=== PATIENT | female | born 1990 | race Caucasian/White ===

== ENCOUNTER 2016-10-17 13:27 | Inpatient (IN) | payer OTHER, BC ==
[~2016-10-17] VITALS: Ht 167.6 cm; Wt 111.0 kg
[~2016-10-17 13:27] MED LIST: ERGO500037 PO; PRENTAB26 PO
[2016-10-17] MEDS ORDERED: LACTATED RINGER'S 1000ML 1,000 ML IV PRN (14:39)
[2016-10-17] MEDS ORDERED: PENICILLIN G POTASSIUM IV 6 MU in DEXTROSE 5% 250ML 250 ML IV ONE (15:00)
[2016-10-17] MEDS: LACTATED RINGER'S 1000ML 1,000 ML IV SCH (15:05)
[2016-10-17 15:26] LABS: HEMATOCRIT 37.4 % (37-47); MEAN CELL VOLUME 90.1 fL (80-100); MEAN CORPUSCULAR HEMOGLOBIN 30.6 pg (25-34); MEAN PLATELET VOLUME 10.3 fL (7.4-10.4); PLATELET COUNT 280 K/uL (130-400); RED BLOOD COUNT 4.15 M/uL (4.2-5.4); WHITE BLOOD COUNT 14.41 K/uL (4.8-10.8)
[2016-10-17 16:07] VITALS: Ht 167.6 cm; Wt 111.0 kg
[2016-10-17] MEDS ORDERED: BUPIVACAINE 0.25% 30 ML VIAL ONE (17:51)
[2016-10-17] MEDS ORDERED: EpHEDrine SULFATE INJ 50 MG/ML AMP ONE (17:51)
[2016-10-17] MEDS ORDERED: FENTANYL CITRATE INJ 50 MCG/1 ML 2 ML VIAL ONE (17:52)
[2016-10-17] MEDS ORDERED: FENTANYL 2MCG/ML ROPIV 1.25MG/ML 100ML BAG EPI ONE (17:52)
[2016-10-17] MEDS ORDERED: LACTATED RINGER'S 1000ML 500 ML IV PRN ×2 (17:52→18:35)
[2016-10-17] MEDS ORDERED: OXYTOCIN 30 UNITS/500ML NSS IV PRN (18:00)
[2016-10-17] MEDS ORDERED: ONDANSETRON INJ 2 MG/ML 2 ML VIAL IV PRN (18:45)
[2016-10-17] MEDS ORDERED: NALOXONE HCL INJ 0.4 MG/1 ML VIAL/CARP IV PRN (18:45)
[2016-10-17] MEDS ORDERED: NALBUPHINE HCL INJ 10 MG/ML AMP IV PRN (18:45)
[2016-10-17] MEDS ORDERED: EpHEDrine SULFATE INJ 50 MG/ML AMP IV PRN (18:45)
[2016-10-17] MEDS ORDERED: DiphenhydrAMINE HCL 50 MG/ML VIAL IV PRN (18:45)
[2016-10-17] MEDS: PENICILLIN G POTASSIUM IV 3 MU in DEXTROSE 5% 100ML 100 ML IV PRN ×2 (19:12→23:28)
[2016-10-17] MEDS ORDERED: ONDANSETRON INJ 2 MG/ML 2 ML VIAL ONE (19:19)
[2016-10-17] MEDS ORDERED: ACETAMINOPHEN 325 MG TAB ONE (22:25)
[2016-10-17] MEDS ORDERED: ACETAMINOPHEN 325 MG TAB PO PRN (22:30)
[2016-10-18] MEDS: LACTATED RINGER'S 1000ML 1,000 ML IV SCH (02:01)
[2016-10-18] MEDS: FENTANYL 2MCG/ML ROPIV 1.25MG/ML 100ML BAG EPI PRN ×3 (02:03→08:45)
[2016-10-18] MEDS: PENICILLIN G POTASSIUM IV 3 MU in DEXTROSE 5% 100ML 100 ML IV PRN ×2 (03:30→07:23)
[2016-10-18] MEDS ORDERED: METHYLERGONOVINE MALEATE 0.2 MG/ML AMP ONE (10:23)
[2016-10-18] MEDS ORDERED: METHYLERGONOVINE MALEATE 0.2 MG/ML AMP IM ONE (11:00)
[2016-10-18] MEDS ORDERED: HYDROCORTISONE ACETATE 25 MG SUPP PR PRN (11:00)
[2016-10-18] MEDS ORDERED: MISOPROSTOL 200 MCG TAB PR SCH (11:00)
[2016-10-18] MEDS ORDERED: ACETAMINOPHEN/CODEINE 300/30MG TAB PO PRN ×2 (11:00)
[2016-10-18] MEDS ORDERED: LANOLIN OINT EXT PRN ×2 (11:00)
[2016-10-18] MEDS ORDERED: SUPERCREAM 0.870 % 15GM JAR EXT PRN (11:00)
[2016-10-18] MEDS ORDERED: BENZOCAINE 20% AER SPR 82.5 GM CAN EXT PRN (11:00)
[2016-10-18] MEDS ORDERED: OXYTOCIN 30 UNITS/500ML NSS IV PRN (11:00)
[2016-10-18] MEDS ORDERED: DIPHTHERIA/TETANUS/PERTUSSIS 0.5 ML SYR/VIAL IM. ONE (11:00)
--- NOTE | 2016-10-18 12:28 | DELIVERY SUMMARY ---
DATE OF OPERATION: 10/18/2016 FINDINGS: Viable female with Apgars of 9 and 9. Baby delivered over a midline episiotomy. Cord gasses, cord blood samples obtained. Placenta delivered spontaneously. Episiotomy repaired with 4-0 and 2-0 Vicryl. atony treated with Methergine, Pitocin and rectal Cytotec. LABOR NOTE: The patient is a 26-year-old 2, para 0 with an EDC of 22 of October, who was admitted at 39+ weeks gestational age in labor. The patient presented to Labor and Delivery on 17 of October for contractions and leaking of fluid. She had been leaking fluid since the previous evening. The contractions began to increase in intensity approximately at 0600 hours on the 17 of October and she presented to Labor and Delivery for evaluation. The patient has had a benign course. EDC was established by and confirmed by first trimester ultrasound. Her laboratory value showed a blood type of O positive, antibody negative, rubella immune, hepatitis B negative. She had a negative quad screen. She had an elevated 1 hour Glucola at 16 weeks with normal glucose tolerance test at both 16 and 28 weeks. The patient had positive GBS bacteria at 28 weeks. Upon admission, the patient was 3 cm dilated anabelle leaking fluid, but there was a palpable forebag because of the positive beta-strep. She was started on penicillin 6 million unit loading dose and then 3 million units every 4 hours. Contractions became more regular. Pitocin was initiated. The patient became uncomfortable and an epidural was placed. Forebag was ruptured at 5 cm and thick meconium was noted. Tracing was category 2 with moderate variability. The patient progressed to full dilatation by 0630 hours on the 18 of October and began her second stage. By 0830 she was at a +2 presentation in an OA presentation very uncomfortable on examination. Delivering physician assumed care for the patient. Despite the discomfort the patient had no sensation in her legs and was unable to bear weight or any upper abdominal pain. Options for attempted operative vaginal delivery versus section versus continuing pushing were discussed with the patient upon the delivering physician's assumption of care. The patient wished to continue to push. Tracing was category 2 and felt to be stable. The patient continued to push effectively and after a 3-hour and 45-minute second stage delivered a viable female infant. Some difficulty with the shoulders, reduced with moderate traction. No suprapubic pressure was needed. Baby delivered with good vigorous cry terminating meconium diesel engine specialist. Because of the prolonged second stage, pediatrics was present for the delivery to evaluate the baby. Cord was clamped and cut. Cord gasses, cord blood samples were obtained. Placenta was delivered spontaneously. There was atony. The patient initially received IV Pitocin as well as IM Methergine. The atony improved though there was still bleeding and she then received Cytotec 800 mcg rectally. Midline episiotomy was repaired with 4-0 and 2-0 Vicryl in a routine fashion. Estimated blood loss was 300 mL. Sponge and needle count was correct. I attest to the content of the Intraoperative Record and any orders documented therein. Any exceptions are noted below. MTDD
--- NOTE | 2016-10-18 12:34 | Anesthesia Procedure Note ---
Anesthesia Epidural Removal Nt Date & Time Oct 18, 2016 at 12:34 Vital Signs Pain Intensity: 9.0 Notes Mental Status: alert / awake / arousable, participated in evaluation Nausea / Vomiting: adequately controlled Pain: adequately controlled Airway Patency, RR, SpO2: stable & adequate BP & HR: stable & adequate Hydration State: stable & adequate Neuraxial Anesthesia: was administered, sensory block is resolving Anesthetic Complications: no major complications apparent, pt satisfied with anesthetic care Epidural: removed without complications, with tip intact
[2016-10-18] MEDS: IBUPROFEN 600 MG TAB PO PRN ×3 (13:24→21:36)
[2016-10-18 16:30] VITALS: BP 134/90; PULSE 98; TEMP 37
[2016-10-18] MEDS: ACETAMINOPHEN 325 MG TAB PO PRN ×2 (18:44→23:10)
[2016-10-18 19:30] VITALS: BP 141/82; PULSE 106; TEMP 37.1
[2016-10-18] MEDS: DOCUSATE SODIUM 100 MG CAP PO SCH (19:41)
[2016-10-18 23:25] VITALS: BP 120/79; PULSE 86; TEMP 36.5; O2SAT 98
[2016-10-19 04:50] VITALS: BP 132/89; PULSE 82; TEMP 36.3; O2SAT 98
[2016-10-19] MEDS: IBUPROFEN 600 MG TAB PO PRN ×3 (05:05→21:53)
--- NOTE | 2016-10-19 06:50 | Progress Note ---
Subjective Oct 19, 2016. Subjective conversation w/ patient, physical exam Ambulation: ambulating normally Voiding: no voiding problems Passing Gas: Yes Diet Tolerance: Regular Diet Lochia: Small Feeding Type: Breast Feeding Pain: Pain well controlled with Tylenol and Motrin Review of Systems Constitutional: No chills, No fever Respiratory: No cough, No shortness of breath Cardiac: No chest pain Breast: No breast pain Abdomen: No nausea, No pain, No vomiting Female : No dysuria Objective Vital Signs Date Time Temp Pulse Resp B/P Pulse Ox O2 Delivery O2 Flow Rate FiO2 10/19/16 04:50 36.3 82 16 132/89 98 Room Air 10/18/16 23:25 98 Room Air 10/18/16 23:25 36.5 86 18 120/79 98 Room Air 10/18/16 19:30 37.1 106 22 141/82 Room Air 10/18/16 16:30 37.0 98 20 134/90 10/18/16 13:40 Room Air Physical Exam General Appearance: WELL-APPEARING, WD/WN, NO APPARENT DISTRESS Respiratory/Chest: lungs clear, normal breath sounds Cardiovascular: regular rate, rhythm, no gallop, no murmur Abdomen: non tender, soft Fundus: Firm, Relation to Umbilicus (1cm below umbilicus) Extremities: no calf tenderness Laboratory Results Last 24 Hours Test 10/19/16 04:44 Medications Current Inpatient Medications Medications (Trade) Dose Ordered Sig/Shy Route Start Time Stop Time Status Last Admin Dose Admin Oxytocin (Pitocin IV) 30 units UD PRN IV 10/18/16 11:00 11/17/16 10:59 10/18/16 12:51 30 UNITS Benzocaine (Dermoplast Aero Spr) 1 appln PRN PRN EXT 10/18/16 11:00 11/17/16 10:59 10/18/16 17:18 1 APPLN Cocaine HCl (Supercream 0.870% Cr) BID PRN EXT 10/18/16 11:00 11/01/16 10:59 Hydrocortisone Acetate (Anusol Hc Supp) 25 mg BID PRN [place] 10/18/16 11:00 11/17/16 10:59 Lanolin (Lanolin Oint) PRN PRN EXT 10/18/16 11:00 11/17/16 10:59 Prenat Multivit/ [place]/Iron/Folic Ac ( Vitamin Tab) 1 tab DAILY PO 10/19/16 08:00 11/18/16 07:59 Ibuprofen (Motrin Tab) 600 mg Q4H PRN PO 10/18/16 11:00 11/17/16 10:59 10/19/16 05:05 600 MG Acetaminophen (Tylenol Tab) 650 mg Q6H PRN PO 10/18/16 11:00 11/17/16 10:59 10/18/16 23:10 650 MG Acetaminophen/ Codeine Phosphate (Tylenol w/ Codeine #3 Tab) 1 tab Q4H PRN PO 10/18/16 11:00 11/17/16 10:59 Acetaminophen/ Codeine Phosphate (Tylenol w/ Codeine #3 Tab) 2 tab Q4H PRN PO 10/18/16 11:00 11/17/16 10:59 Bisacodyl (Dulcolax Tab) 5 mg 20 PO 10/19/16 20:00 10/19/16 20:01 Docusate Sodium (coLACE CAP) 100 mg BID PO 10/18/16 20:00 11/17/16 19:59 10/18/16 19:41 100 MG Ferrous Sulfate (Feosol Tab) 325 mg DAILY PO 10/19/16 08:00 11/18/16 07:59 Assessment and Plan Problem List Medical Problems: (1) Hand laceration involving tendon Status: Acute Post- Day#: 1 Continue Routine Care: - Vital Signs reviewed and WNL (temp max 36.3) - Blood Type: O+, GBS Negative, Rubella Immune - Patient doing well clinically - Encourage Ambulation today - Tolerating PO Diet - Pain well controlled with Tylenol and Motrin Resident Physician Supervision Note: I interviewed and examined the patient. Discussed with Dr. Doyle and agree with findings and plan as documented in the note. Any exceptions or clarifications are listed here: The baby has a fractured left clavicle. Discussed with patient and . Pt was GBS (+). Documented By: Robert Smart
[2016-10-19 07:27] LABS: HEMATOCRIT 31.8 % (37-47)
[2016-10-19 08:44] VITALS: TEMP 36.6
[2016-10-19 08:46] VITALS: BP 114/80; PULSE 77; TEMP 36.6; O2SAT 98
[2016-10-19] MEDS: ACETAMINOPHEN 325 MG TAB PO PRN ×2 (08:55→20:42)
[2016-10-19] MEDS: DOCUSATE SODIUM 100 MG CAP PO SCH ×2 (09:39→20:37)
[2016-10-19] MEDS: FERROUS SULFATE 325 MG TAB PO SCH (09:39)
[2016-10-19] MEDS: PRENATAL VITAMIN TAB PO SCH (09:40)
[2016-10-19 09:51] VITALS: O2SAT 98
[2016-10-19 15:15] VITALS: BP 131/86; PULSE 87; TEMP 36.5
[2016-10-19] MEDS ORDERED: BISACODYL 5 MG TABEC PO SCH (20:00)
[2016-10-19 23:54] VITALS: BP 114/79; PULSE 83; TEMP 37.1
[2016-10-20] MEDS: IBUPROFEN 600 MG TAB PO PRN ×2 (01:30→05:48)
[2016-10-20] MEDS: ACETAMINOPHEN 325 MG TAB PO PRN ×2 (03:45→08:29)
--- NOTE | 2016-10-20 06:47 | Progress Note ---
Subjective Oct 20, 2016. Subjective conversation w/ patient, physical exam Ambulation: ambulating normally Voiding: no voiding problems Passing Gas: Yes Diet Tolerance: Clear Liquids Lochia: Small Feeding Type: Breast Feeding Pain: No pain reported this morning Review of Systems Constitutional: No chills, No fever Respiratory: No cough, No shortness of breath Cardiac: No chest pain Breast: No breast pain Abdomen: No nausea, No pain, No vomiting Female : No dysuria Objective Vital Signs Date Time Temp Pulse Resp B/P Pulse Ox O2 Delivery O2 Flow Rate FiO2 10/19/16 23:56 Room Air 10/19/16 23:54 37.1 83 20 114/79 Room Air 10/19/16 15:15 36.5 87 20 131/86 Room Air 10/19/16 15:15 Room Air 10/19/16 09:51 98 Room Air 10/19/16 08:46 36.6 77 14 114/80 98 Room Air 10/19/16 08:44 36.6 10/19/16 07:25 Room Air Physical Exam General Appearance: WELL-APPEARING, WD/WN, NO APPARENT DISTRESS Respiratory/Chest: lungs clear, normal breath sounds Cardiovascular: regular rate, rhythm, no gallop, no murmur Abdomen: non tender, soft Fundus: Firm, Relation to Umbilicus (1cm below) Extremities: no calf tenderness Laboratory Results Last 24 Hours Test 10/19/16 06:50 Hemoglobin 10.5 g/dL Hematocrit 31.8 % Medications Current Inpatient Medications Medications (Trade) Dose Ordered Sig/Shy Route Start Time Stop Time Status Last Admin Dose Admin Oxytocin (Pitocin IV) 30 units UD PRN IV 10/18/16 11:00 11/17/16 10:59 10/18/16 12:51 30 UNITS Benzocaine (Dermoplast Aero Spr) 1 appln PRN PRN EXT 10/18/16 11:00 11/17/16 10:59 10/18/16 17:18 1 APPLN Cocaine HCl (Supercream 0.870% Cr) BID PRN EXT 10/18/16 11:00 11/01/16 10:59 Hydrocortisone Acetate (Anusol Hc Supp) 25 mg BID PRN [place] 10/18/16 11:00 11/17/16 10:59 Lanolin (Lanolin Oint) PRN PRN EXT 10/18/16 11:00 11/17/16 10:59 Prenat Multivit/ Entry Level Drafter/Iron/Folic Ac ( Vitamin Tab) 1 tab DAILY PO 10/19/16 08:00 11/18/16 07:59 10/19/16 09:40 1 TAB Ibuprofen (Motrin Tab) 600 mg Q4H PRN PO 10/18/16 11:00 11/17/16 10:59 10/20/16 05:48 600 MG Acetaminophen (Tylenol Tab) 650 mg Q6H PRN PO 10/18/16 11:00 11/17/16 10:59 10/20/16 03:45 650 MG Acetaminophen/ Codeine Phosphate (Tylenol w/ Codeine #3 Tab) 1 tab Q4H PRN PO 10/18/16 11:00 11/17/16 10:59 Acetaminophen/ Codeine Phosphate (Tylenol w/ Codeine #3 Tab) 2 tab Q4H PRN PO 10/18/16 11:00 11/17/16 10:59 Docusate Sodium (coLACE CAP) 100 mg BID PO 10/18/16 20:00 11/17/16 19:59 10/19/16 20:37 100 MG Ferrous Sulfate (Feosol Tab) 325 mg DAILY PO 10/19/16 08:00 11/18/16 07:59 10/19/16 09:39 325 MG Assessment and Plan Problem List Medical Problems: (1) Hand laceration involving tendon Status: Acute Post- Day#: 2 Continue Routine Care: - Vital Signs reviewed and WNL (temp max 37.1) - Blood Type: O+, GBS Positive, Rubella Immune - Patient doing well clinically - Encourage Ambulation today - Tolerating PO Diet - Pain well controlled - Discharge today Resident Physician Supervision Note: I interviewed and examined the patient. Discussed with Dr. Doyle and agree with findings and plan as documented in the note. Any exceptions or clarifications are listed here: [None] Documented By: Zhang Nagel
--- NOTE | 2016-10-20 06:48 | Discharge Instructions ---
Discharge Instructions Admission Reason for Admission: Normal Labor And Delivery Discharge Discharge Diagnosis / Problem: Vaginal Delivery Discharge Goals Goal(s): Routine recovery after delivery Medications Continue Dispensed Medications: supercream, dermaplast, tucks, lansinoh Activity Recommendations Activity Limitations: per Instructions/Follow-up section . Instructions / Follow-Up Instructions / Follow-Up ACTIVITY RECOMMENDATIONS: * Gradual return to full activity over the next 2-3 weeks. * No lifting - nothing heavier than baby over the next 2-3 weeks. * Do not engage in vigorous exercise, sexual activity or sports until cleared by your physician. * Do not drive or operate any motorized equipment until cleared by your physician. * You may shower/bathe daily. MEDICATIONS: For discomfort or pain, you may use Acetaminophen (Tylenol), Ibuprofen (Advil), or Naproxen (Aleve) following the package directions. For constipation you may use Colace following the package directions. BREAST CARE: If you are not breast feeding: * Wear a supportive bra 24 hours a day for one to two weeks. * Avoid stimulating your breasts and nipples as much as possible during the first few weeks after delivery. * When taking a shower, have the warm water hit your back, not breasts. * When your breasts feel full, apply ice packs. Usually three to four times a day helps ease the discomfort. * Take a mild pain medication (Tylenol / Motrin) when you are uncomfortable. If breast feeding: * Use breast milk to lubricate nipples. Lansinoh cream may be used for sore nipples. You do not need to remove cream prior to breast feeding. If using a different brand of cream, check the label for directions regarding removal of cream prior to nursing. * Wear a supportive bra. * If having problems with breasts or breast feeding, call a network systems consultant or your health care provider. EPISIOTOMY CARE: After delivery, if you have an episiotomy (stitches), the following steps will ease discomfort and aid healing. * For the first 24 hours after delivery, place ice packs next to your episiotomy to help reduce swelling. * After the first 24 hour-period, sitz baths, either portable or in the tub, are suggested. A shower with a shower arm sprayed over the episiotomy may be comforting. * Anna care should be done after each voiding and bowel movement. Squirt warm water from a plastic bottle over the perineum (region of the body between the anus and urinary opening) and pat dry. * Use Dermoplast to ease discomfort. Shake container. [place] directly over the episiotomy. Place a Tucks on a clean sanitary pad next to your episiotomy. SPECIAL CARE INSTRUCTIONS: When you are discharged from the hospital, it is important for you to follow the instructions listed below: * During the first week at home, you should be able to care for yourself and your baby. In addition, the usual light household activities are encouraged. * Limit your activities to the way you feel. Do not try to clean the house or move furniture. Be sensible. * If you actively engage in sports and have done so up until the time of your delivery, you may resume these activities as soon as you feel able. This may take up to one month or even longer. Use good judgment. * Continue to take your vitamins for at least six weeks after the of your baby. * Your diet need not be limited unless you were on a special diet before your delivery. Breast-feeding mothers need around 2500 calories per day and at least 64-80 ounces of fluid per day (8 to 10 glasses). * You should eat foods from the four major food groups. Crash diets or fad diets are to be avoided. Eating lean meats, fresh fruits and vegetables, low-fat dairy products, high fiber foods and a regular exercise program, will help you get back to your pre- weight without putting your health at risk. * Constipation is sometimes a problem after delivery. Take a mild laxative as needed. If breast feeding, Milk of Magnesia is acceptable to use. You may use a suppository or Fleets enema if no episiotomy. * A daily shower or tub bath is suggested. Be sure to thoroughly and gently dry the perineum. * A bloody vaginal discharge will usually continue until around four weeks post . A small amount of bleeding may continue for as long as six weeks. Vaginal discharge changes from the bright red bleeding after delivery to pink then brownish and finally yellowish-pink before becoming white and disappearing. * Bleeding may increase with activity. Your first period may come in 4-8 weeks. If you are breast feeding, your period may be delayed even longer. * [place] (sex) can begin whenever both you and your partner feel comfortable and do not have any form of genital infection. It is recommended that you wait at least six weeks for internal and external healing to occur. If you have questions, please talk to your health care practitioner. A condom should be used to prevent infection and . * Foreplay, gentle intercourse and lubrication is very important the first several times to prevent pain. A water-based lubricant such as K-Y jelly or Astroglide may be used. * If you have RH negative blood and your baby is RH positive, you will receive RHOGAM by injection prior to discharge. The nurse will give you a card to keep with you that has the date and place that you received RHOGAM after delivery. * During your care, you had a Rubella screen done to check for the presence of rubella antibodies in your blood. If your test was negative, you will receive a Rubella vaccine prior to discharge. This vaccine may cause a fever, soreness at the injection site and flu-like symptoms. If these symptoms persist, notify your health care practitioner. is not advised for one month after a Rubella vaccine. * Verbalizes understanding of car seat law as reviewed with patient nursing. * Car Seat hand-out given and reviewed with patient by nursing. * Shaken baby information reviewed with patient by nursing. Call you doctor if: * Heavy bleeding (saturating several pads an hour) or passing clots the size of your fist. * A fever >101 degrees F (38.3 degrees C) on two occasions four hours apart and /or chills. * Unusual pain in the pelvic or vaginal areas. * "Baby Blues" lasting longer than two weeks. If you have any questions or concerns, call your health care practitioner at . FOLLOW UP VISIT: * Please call the office at to schedule a 6 week examination. It is important you keep this appointment. It is important for you to make arrangements for either yearly or twice yearly check-ups thereafter. Current Hospital Diet Patient's current hospital diet: Regular OB Diet Discharge Diet Recommended Diet: Regular Diet Pending Studies Studies pending at discharge: no Laboratory Results Lipid Panel Test 07/29/16 08:04 Range/Units Triglycerides Level 183 H 0-150 mg/dl Cholesterol Level 174 0-200 mg/dl HDL Cholesterol 61 mg/dl Cholesterol/HDL Ratio 2.9 LDL Cholesterol, Calculated 76 mg/dl Medical Emergencies . Who to Call and When: Medical Emergencies: If at any time you feel your situation is an emergency, please call 911 immediately. . Non-Emergent Contact Non-Emergency issues call your: High Pressure Operator . . "Provider Documentation" section prepared by Cuate Doyle. VTE Core Measure Inpt VTE Proph given/why not?: Treatment not indicated
[2016-10-20 08:00] VITALS: BP 114/72; PULSE 83; TEMP 36.4; O2SAT 97
[2016-10-20] MEDS: DOCUSATE SODIUM 100 MG CAP PO SCH (08:29)
[2016-10-20] MEDS: FERROUS SULFATE 325 MG TAB PO SCH (08:29)
[2016-10-20] MEDS: PRENATAL VITAMIN TAB PO SCH (08:30)
[2016-10-20] MEDS ORDERED: CEPH500C2 PO (11:49)
--- NOTE | 2016-10-20 12:01 | Progress Note ---
Progress Note Patient complains of burning with urination and increased urinary frequency. This feels like a UTI she has had in the past. She feels like this is separate discomfort than the burning with her perineal stitches. UA/reflex culture ordered. Due to symptomatic presentation, will treat empirically with keflex 500mg 4x daily. Will check culture and adjust abx if needed.
[2016-10-20 12:14] LABS: URINE APPEARANCE CLEAR (CLEAR); URINE BILIRUBIN NEG (NEG); URINE COLOR YELLOW; URINE EPITHELIAL CELL AUTO >30 /lpf (0-5); URINE NITRITE NEG (NEG); URINE SPECIFIC GRAVITY 1.016 (1.000-1.030); UROBILINOGEN NEG (NEG)
[2016-10-20 12:20] LABS: MANUAL MICROSCOPIC REQUIRED? NO; REVIEW REQ? YES
[2016-10-20 12:59] VITALS: BP_DIAS 72; PULSE 83; TEMP 36.4
== END 2016-10-20 13:00 | disposition home or self-care (01) | DRG 775 ==
LOC: C.OPB 13:27 → C.LD 13:27 → C.OPB 14:49 → C.OBG 10-18 13:46
PROVIDERS: ADMIT Obstetrics & Gynecology; ATTEND Obstetrics & Gynecology
PROC: 0W8NXZZ Division of Female Perineum, External Approach (ICD-10-PCS; principal; 2016-10-18)
PROC: 10E0XZZ Delivery of Products of Conception, External Approach (ICD-10-PCS; principal; 2016-10-18)
PROC: 3E0K7GC Introduction of Other Therapeutic Substance into Genitourinary Tract, Via Natural or Artificial Opening (ICD-10-PCS; 2016-10-18)
DX: O63.1 Prolonged second stage (of labor) (principal); O99.820 Streptococcus B carrier state complicating pregnancy; O75.89 Other specified complications of labor and delivery; Z3A.39 39 weeks gestation of pregnancy; Z37.0 Single live birth

== ENCOUNTER → 2016-10-26 | Outpatient (CLI) | payer OTHER, BC ==
[~2016-10-26] MED LIST changes: +CEPH500C2 PO; -ERGO500037 PO
[2016-10-26 13:05] LABS: BASO % 0.5 %; BASO ABS # 0.06 K/uL (0-0.2); COMPLETE YES; EOS % 2.9 %; IG% 1.1 %; LYMPH % 24.9 %; LYMPH ABS # 2.94 K/uL (1.2-3.4); MEAN CELL VOLUME 90.7 fL (80-100); MEAN CORPUSCULAR HEMOGLOBIN 29.8 pg (25-34); MEAN CORPUSCULAR HGB CONC 32.9 g/dl (32-36); MEAN PLATELET VOLUME 9.9 fL (7.4-10.4); MONO % 10.3 %; NEUT % 60.3 %; PLATELET COUNT 406 K/uL (130-400); RED BLOOD COUNT 4.19 M/uL (4.2-5.4); WHITE BLOOD COUNT 11.83 K/uL (4.8-10.8)
== END | disposition home or self-care (01) ==
LOC: C.LAB1850 11:31
PROVIDERS: ATTEND Obstetrics & Gynecology
DX: O86.4 Pyrexia of unknown origin following delivery (principal)

== ENCOUNTER → 2016-12-20 | Outpatient (CLI) | payer OTHER, BC ==
[~2016-12-20] MED LIST changes: -CEPH500C2 PO
[2016-12-20 18:03] LABS: HEMATOCRIT 40.4 % (37-47); MEAN CELL VOLUME 87.3 fL (80-100); MEAN CORPUSCULAR HEMOGLOBIN 28.9 pg (25-34); MEAN CORPUSCULAR HGB CONC 33.2 g/dl (32-36); MEAN PLATELET VOLUME 10.1 fL (7.4-10.4); PLATELET COUNT 278 K/uL (130-400); RED BLOOD COUNT 4.63 M/uL (4.2-5.4); WHITE BLOOD COUNT 8.14 K/uL (4.8-10.8)
== END | disposition home or self-care (01) ==
LOC: C.LABMFLN 14:39
PROVIDERS: ATTEND Internal Medicine
DX: R00.2 Palpitations (principal)

== ENCOUNTER 2017-10-25 22:08 | Emergency (ER) | payer BC, OTHER ==
[~2017-10-25] VITALS: Ht 167.6 cm; Wt 103.3 kg
[2017-10-25 22:13] VITALS: TEMP 36.5; Ht 167.6 cm; Wt 103.3 kg
[2017-10-25] MEDS ORDERED: ALBUT/IPRATROP 3MG/0.5MG NEB 3 ML VIAL INH STA (22:51)
--- NOTE | 2017-10-25 22:57 | DIAGNOSTIC IMAGING REPORT ---
CHEST 2 VIEWS ROUTINE CLINICAL HISTORY: 27 years-old Female presenting with cough. TECHNIQUE: PA and lateral views of the chest were obtained. COMPARISON: None. FINDINGS: Cardiomediastinal silhouette normal. Lungs and pleural spaces clear. Osseous structures normal. Upper abdomen normal. IMPRESSION: 1. No acute cardiopulmonary disease. Electronically signed by: Ras Del Valle M.D. 10/25/2017 10:56 PM Dictated Date/Time: 10/25/2017 10:55 PM
[2017-10-25] MEDS ORDERED: METH4PAK PO (23:26)
--- NOTE | 2017-10-25 23:27 | EMERGENCY ROOM VISIT NOTE ---
History First contact with patient: 22:16 Chief Complaint: FLU LIKE SX Stated Complaint: SOB,TIGHT/SORE THROAT,TROUBLE SWALLOWING,EAR PAIN History of Present Illness The patient is a 27 year old female who presents to the Emergency Room with complaints of cold symptoms for the past 4 days. The patient states she also was running a low-grade fever at 99.8. The patient admits to intermittent ear pain and sore throat although she thinks the sore throat could be from the dry cough. She states initially the cough was more congested but now it is more dry. She is asthmatic and is using her inhaler. The patient does admit to some chest tightness. She states her daughter was recently sick but did not have the flu. She was diagnosed with the ear infection. Review of Systems 10 system review was performed and was negative unless stated otherwise history of present illness. Past Medical/Surgical History Medical Problems: (1) Migraines (2) Normal labor and delivery Asthma Family History Patient reports no known family medical history. Social History Smoking Status: Never Smoker Alcohol Use: none Drug Use: none Marital Status: Housing Status: lives with family Occupation Status: employed Current/Historical Medications Scheduled Multivit/Min/Iron/Fol Ac/Pren ( Vitamin), 1 TAB PO DAILY Physical Exam Vital Signs Date Time Temp Pulse Resp B/P (MAP) Pulse Ox O2 Delivery O2 Flow Rate FiO2 10/25/17 22:13 36.5 93 16 150/86 98 Room Air Physical Exam PHYSICAL EXAM: Vital Signs were reviewed: Temperature 36.5, blood pressure 150/ 86, pulse 93, respiratory rate 16 reviewed Nurse's notes and agree. Oxygen saturation is 98 % on room air which is normal . GENERAL: 27-year-old female appears in no acute distress. MENTAL STATUS: Alert, oriented, coherent. EARS: Canals clear. TMs good light reflex, no erythema or fluid level noted. NOSE: Nasal mucosa with moderate erythema engorgement. PHARYNX: No erythema, no edema noted. No exudate noted. Airway is adequate. NECK: Supple, non-tender. No lymphadenopathy noted. LUNGS: Clear to auscultation without wheezes rales or rhonchi. CARDIAC: Regular rate and rhythm without murmur. SKIN: No rashes noted. Medical Decision & Procedures ER Provider Diagnostic Interpretation: CHEST 2 VIEWS ROUTINE CLINICAL HISTORY: 27 years-old Female presenting with cough. TECHNIQUE: PA and lateral views of the chest were obtained. COMPARISON: None. FINDINGS: Cardiomediastinal silhouette normal. Lungs and pleural spaces clear. Osseous structures normal. Upper abdomen normal. IMPRESSION: 1. No acute cardiopulmonary disease. Electronically signed by: Ras Del Valle M.D. 10/25/2017 10:56 PM Dictated Date/Time: 10/25/2017 10:55 PM Medications Administered Medications (Trade) Dose Ordered Sig/Shy Route Start Time Stop Time Status Last Admin Dose Admin Albuterol/ Ipratropium (Duoneb) 3 ml NOW STAT INH 10/25/17 22:51 10/25/17 22:52 DC 10/25/17 23:08 3 ML ED Course The patient was evaluated. Chest x-ray was ordered interpreted by the radiologist as above without any acute findings. The patient was given a DuoNeb. The patient was reevaluated and informed of the x-ray findings. The patient was feeling better. The patient was discharged home in stable condition. Medical Decision Differential diagnoses include asthma exacerbation, URI, influenza, bronchitis [place] Drug Monitoring Program Search Results: patient reviewed within database Medication Reconcilliation Current Medication List: was personally reviewed by [place] Blood Pressure Screening Patient's blood pressure: Elevated blood pressure Blood pressure disposition: Elevated BP felt to be situational Impression Primary Impression: Upper respiratory infection Additional Impression: Asthma Departure Information Dispostion Home / Self-Care Condition GOOD Prescriptions Methylprednisolone (MEDROL DOSEPAK) 4 Mg Magnus 0 PO DAILY, #1 PKT Prov: Venus Barnes, JASPER-Jerson 10/25/17 Referrals Garett Santamaria, D.OLeo (PCP) Forms HOME CARE DOCUMENTATION FORM, IMPORTANT VISIT INFORMATION Patient Instructions Common Cold - [facility], [facility] Additional Instructions Albuterol inhaler 2 puffs every 4 hours as needed for cough and chest tightness. Take Medrol Dosepak as prescribed. Push fluids, rest. Tylenol and/ or ibuprofen as needed for fever. If symptoms persist or worsen, follow-up with your family doctor. Problem Qualifiers Primary Impression: Upper respiratory infection URI type: unspecified viral URI Qualified Codes: J06.9 - Acute upper respiratory infection, unspecified Additional Impression: Asthma Asthma severity: unspecified severity Asthma persistence: unspecified Asthma complication type: unspecified Qualified Codes: J45.909 - Unspecified asthma, uncomplicated
[2017-10-25 23:34] VITALS: BP 137/91; PULSE 108; O2SAT 98
== END 2017-10-25 23:35 | disposition home or self-care (01) ==
LOC: C.EDB 22:10
DX: J06.9 Acute upper respiratory infection, unspecified (principal); J45.909 Unspecified asthma, uncomplicated

== ENCOUNTER 2019-05-11 02:57 | Inpatient (IN) ==
[2019-05-11] MEDS ORDERED: LACTATED RINGER'S 1,000 ML IV ONE (05:44)
[2019-05-11] MEDS ORDERED: MoRPHine SULFATE 4 MG/ML 1 ML CARP\\VIAL IV STA ×2 (05:44→06:47)
[2019-05-11] MEDS ORDERED: CEFAZOLIN 3000MG 65 ML IV SCH (06:00)
[2019-05-11] MEDS: ONDANSETRON INJ 2 MG/ML 2 ML VIAL IV PRN ×2 (06:10→11:05)
--- NOTE | 2019-05-11 06:46 | Obstetrical Progress Note ---
Date of Service May 11, 2019 Subjective Patient is seen and examined 1st time seeing her I reviewed her records 37 wks h/o traumatic delivery with forceps and shoulder dystocia and scheduled Primary Csection for this on 05/27 She states she has been feeling ctxs since week 32 She has been here many time and had been treated with IVF, Terbutaline, Procardia, Steroids She had to stop Procardia due to side effects She started to have ctxs last night around 7 pm There are more intense and regular compared to before Pain 05/27 Her cervix has ashlie 1 cm/ thick/-4 She walked and pain got worse She came back and received IV Morphine and now her pain is 4/10, mainly in her back No LOF/VB +FM She had US last week and EFW as 8lb 14 oz, JACQUELYN was 25 cm PE: Alert orientedx3, NAD Abd: soft, NT, gravid, ctxs palpate mild VE per Naila 1 / thick/ -3, checked her twice FHR categ I [place]: ctxs q 2-4 min IVF bolus is running Discussed IVF/ Rest with Morphine/ Terbutaline She declined Terbutaline Plan to observe, monitor, pain management and reevalaute Results & Data Vital Signs (Past 12 Hours) Vital Signs Temp Pulse Resp BP Pulse Ox 05/11/19 06:37 83 97 05/11/19 06:32 85 97 05/11/19 06:27 85 98 05/11/19 06:22 86 98 05/11/19 05:06 18 05/11/19 03:21 85 124/79 05/11/19 03:16 88 133/68 05/11/19 03:09 36.5 C 87 18 137/79
[2019-05-11] MEDS ORDERED: TERBUTALINE SULFATE 1 MG/ML VIAL SQ ONE (06:47)
[2019-05-11] MEDS ORDERED: LACTATED RINGER'S 1,000 ML IV SCH ×4 (07:30→10:30)
--- NOTE | 2019-05-11 07:59 | History & Physical Report ---
Date of Service May 11, 2019 Assessment & Plan (1) Uterine contractions at greater than 20 weeks of gestation: 29 yo at 37 wks with contractions, change in cervix Scheduled Primary C section for 05/27 due to h/o traumatic delivery and shoulder dystocia Desires C section today, declines trial of laor She signed informed consent All questions were answered History of Present Illness Chief Complaint: Contractions Primary Care Provider: Garett Santamaria, DO see prior note Patient is reevaluated She is having IVF and had Morphine for pain She is waking up with ctxs, sleeps in between since she received Morphine for pain Pain is back now to 03/26 NO LOF/VB +FM I checked her cervix this time, now it changed to 4 cm/ 70%/ -2, bulging bag ( was 1 thick -3 for her nurse 2 hours ago) She still desires Primary Csection due to h/o traumatic delivery with forceps and shoulder dystocia Understands the risks of major surgery, bleeding, infection, injury to surrounding organs like bowels, bladder, ureters, blood cloths ( DVT, PE), scarring adhesion Signed informed consent Allergies Allergy/AdvReac Type Severity Reaction Status Date / Time tuberculin, purified protein Allergy Severe HIVES Verified 05/11/19 03:54 deriva latex Allergy Intermediate Rash Verified 05/11/19 03:54 methotrexate Allergy Intermediate Shortness Verified 05/11/19 03:54 of Breath Home Medications Home Medications Medication Instructions Recorded Confirmed Type PNV cmb#95-ferrous fumarate-FA 1 tab PO HS 06/09/18 05/11/19 History [] sertraline [Zoloft] 75 mg PO HS 04/08/19 05/11/19 History ondansetron 4 mg PO Q8H PRN 05/08/19 05/11/19 History Patient History Medical History Migraines (Acute) Anxiety Depression Family history of reaction to anesthesia brother spiked a fever during a surgery -- no one has been tested but always told to have malignant hyperthermia precautions. H/O wisdom tooth extraction History of depression hemorrhage no blood transfusions. last (2016 at [facility]) required an injection of some-sort (pt unsure) labor Spontaneous hx Surgical History H/O hand surgery left hand-artery repair and nerve graft History of vacuum extraction assisted delivery with forceps Hx of tonsillectomy Family History Grandfather (Maternal) Diabetes Brain tumor Seizure Hypertension Stroke Cancer Father Hypertension Aunt No problems noted. Mother Hypothyroidism Hypertension Grandmother (Maternal) Hypothyroidism Hypertension Stroke Grandfather (Paternal) No problems noted. Grandmother (Paternal) Hypertension Cancer Social History Preferred Language: Turkmen Communication Ability: Effective Tufting Machine Operator Single Needle Required: No Beliefs That Will Affect Care: None marital status: Current Living Situation: Spouse and Family Other Information That Helps Us Care for You: No Feels Safe at Home: Yes Safety Concerns: Feels Safe At This Time Smoking Status: Never smoker Second Hand Exposure: No ; Hx Alcohol Use: No Hx Substance Use: No OB History Forceps delivery, shoulder dystocia, 8 lb 15 oz baby Review of Systems All systems reviewed & are unremarkable except as noted in HPI & below Physical Exam Gastrointestinal (Abdomen): Soft, NT, gravid, agata 9 lb Results & Data Vital Signs (Past 12 Hours) Vital Signs Temp Pulse Resp BP Pulse Ox 05/11/19 07:52 95 H 99 05/11/19 07:47 100 H 98 05/11/19 07:42 84 96 05/11/19 07:37 87 97 05/11/19 07:32 83 97 05/11/19 07:27 88 96 05/11/19 07:22 82 97 05/11/19 07:17 87 97 05/11/19 07:12 84 98 05/11/19 07:10 84 119/78 05/11/19 07:07 82 99 05/11/19 07:02 82 97 05/11/19 06:57 80 97 05/11/19 06:52 76 97 05/11/19 06:47 75 97 05/11/19 06:42 83 97 05/11/19 06:37 83 97 05/11/19 06:32 85 97 05/11/19 06:27 85 98 05/11/19 06:22 86 98 05/11/19 05:06 18 05/11/19 03:21 85 124/79 05/11/19 03:16 88 133/68 05/11/19 03:09 36.5 C 87 18 137/79 Code Status & VTE Plan VTE Prophylaxis Plan VTE Prophylaxis will be ordered: Yes Monitoring External Monitor Has been categ I Tocodynamometer Contractions q 2-4 min
[2019-05-11] MEDS ORDERED: CITRIC ACID/SODIUM CITRATE 15 ML UDC ONE (08:00)
--- NOTE | 2019-05-11 08:19 | Anesthesiology Consultation ---
Date of Service May 11, 2019 Assessment & Plan Chart Review Chart Review: Acceptable Risk for Surgery and Patient NOT seen in Pre Admission Testing Consults Requested none ASA ASA3 Proposed Anesthesia Anesthesia Type: Spinal Risk / Benefits Reviewed With: PT / POA / Parent / Guardian, Accepts Plan and Informed Consent Obtained History Height/Weight Height: 5 ft 6 in Weight: 115.666 kg Allergies Allergy/AdvReac Type Severity Reaction Status Date / Time tuberculin, purified protein Allergy Severe HIVES Verified 05/11/19 03:54 deriva latex Allergy Intermediate Rash Verified 05/11/19 03:54 methotrexate Allergy Intermediate Shortness Verified 05/11/19 03:54 of Breath Medications Home Medications Medication Instructions Recorded Confirmed Last Taken PNV cmb#95-ferrous fumarate-FA 1 tab PO HS 06/09/18 05/11/19 05/09/19 20:00 [] sertraline [Zoloft] 75 mg PO HS 04/08/19 05/11/19 05/09/19 20:00 ondansetron 4 mg PO Q8H PRN 05/08/19 05/11/19 05/11/19 02:00 Active Medications Generic Name Dose Route Start Last Admin Trade Name Freq PRN Reason Stop Dose Admin Lactated Ringer's 1,000 mls @ 250 mls/hr 05/11/19 07:30 05/11/19 07:56 Lr IV 06/10/19 07:29 999 mls/hr .Q4H JEZ Administration Ondansetron HCl 4 mg 05/11/19 06:04 05/11/19 06:10 Zofran IV 06/10/19 06:03 4 mg Q4H PRN Administration Nausea NPO Date Last Intake of Fluids: 05/10/19 Time Last Intake of Fluids: 23:00 Date Last Intake of Solids: 05/10/19 Time Last Intake of Solids: 18:30 Past Medical History Medical History Migraines (Acute) Morbid obesity Anxiety Depression Family history of reaction to anesthesia brother spiked a fever during a surgery -- no one has been tested but always told to have malignant hyperthermia precautions. H/O wisdom tooth extraction History of depression hemorrhage no blood transfusions. last (2016 at [facility]) required an injection of some-sort (pt unsure) labor Spontaneous hx Exercise / Class Metabolic Activity III < 4 Walking/Shop/Light housework Past Family History Family History Grandfather (Maternal) Diabetes Brain tumor Seizure Hypertension Stroke Cancer Father Hypertension Aunt No problems noted. Mother Hypothyroidism Hypertension Grandmother (Maternal) Hypothyroidism Hypertension Stroke Grandfather (Paternal) No problems noted. Grandmother (Paternal) Hypertension Cancer Past Surgical History Surgical History H/O hand surgery left hand-artery repair and nerve graft History of vacuum extraction assisted delivery with forceps Hx of tonsillectomy Past Anesthesia History No Hx of Anesthesia Complications and Malignant Hyperthermia (possible with brother) History of PONV No Hx of PONV and No Hx of Motion Sickness Social History Smoking Status: Never smoker Hx Alcohol Use: No Alcohol type: wine alcohol intake frequency: holidays/special occasions only Hx Substance Use: No substance use type: does not use Physical Exam Vital Signs Last Vital Signs Temp 36.5 C 05/11/19 03:09 Pulse 89 05/11/19 08:12 Resp 18 05/11/19 05:06 BP 119/78 05/11/19 07:10 Pulse Ox 98 05/11/19 08:12 Constitutional + morbidly obese ENMT Mouth: no dentition abnormality Thyromental Distance: > or= 3.5 Finger Breadths Mallampati Class: Other (receding chin) Neck normal visual inspection and trachea midline; neck extension not limited Respiratory normal respiratory effort Auscultation: lungs clear to auscultation bilaterally Cardiovascular Rate/Rhythm: regular rate and regular rhythm Heart Sounds: no murmur Musculoskeletal Spine: lumbar spine normal to inspection; normal cervical ROM Neurologic moves all extremities Motor/Sensory: no sensory deficit Psychiatric Orientation: alert and oriented x 3
[2019-05-11 08:21] LABS: Basophils # (auto) 0.03 K/uL (0-0.2); Basophils % (auto) 0.2 %; Eosinophils # (auto) 0.13 K/uL (0-0.5); Hematocrit (blood only) 33.5 % (37-47); Hemoglobin 11.2 g/dL (12.0-16.0); Immature Granulocytes # (auto) 0.08 K/uL (0.00-0.02); Immature Granulocytes % (auto) 0.6 %; Lymphocytes # (auto) 2.46 K/uL (1.2-3.4); Lymphocytes % (auto) 19.4 %; Mean Corpuscular Volume 84.6 fL (80-100); Mean Platelet Volume 10.5 fL (7.4-10.4); Monocytes # (auto) 0.96 K/uL (0.11-0.59); Monocytes % (auto) 7.6 %; Neutrophils # (auto) 9.02 K/uL (1.4-6.5); Neutrophils % (auto) 71.2 %; Platelet Count 209 K/uL (130-400); RDW Coefficient of Variation 13.6 % (11.5-14.5); RDW Standard Deviation 41.4 fL (36.4-46.3); Red Blood Count 3.96 M/uL (4.2-5.4); White Blood Count 12.68 K/uL (4.8-10.8)
[2019-05-11 08:24] LABS: Mean Corpuscular Hgb Conc 33.4 g/dL (32-36)
[2019-05-11] MEDS ORDERED: MoRPHine SULFATE PF 1 MG/ML 10 ML AMP/VIAL ONE (08:35)
[2019-05-11] MEDS ORDERED: fentaNYL citrate 100 MCG/2 ML VIAL ONE (08:36)
[2019-05-11] MEDS ORDERED: ONDANSETRON INJ 2 MG/ML 2 ML VIAL ONE (09:41)
[2019-05-11] MEDS ORDERED: OXYTOCIN 10 UNITS/ML VIAL ONE (09:41)
[2019-05-11] MEDS ORDERED: PHENYLEPHRINE 100MCG/ML 5ML SYR ONE (09:41)
[2019-05-11] MEDS ORDERED: SENNA 8.6 MG TAB PO PRN (10:21)
[2019-05-11] MEDS ORDERED: MAGNESIUM HYDROXIDE SUSP 30 ML UDC PO PRN (10:21)
[2019-05-11] MEDS ORDERED: BENZOCAINE 20% AER SPR 82.5 GM CAN EXT PRN (10:21)
[2019-05-11] MEDS ORDERED: DiphenhydrAMINE HCL 50 MG/ML VIAL IV PRN ×2 (10:21→11:09)
[2019-05-11] MEDS ORDERED: SUPERCREAM 0.870% 15 GM JAR EXT PRN (10:21)
[2019-05-11] MEDS ORDERED: MEASLES, MUMPS & RUBELLA VIRUS VIAL SQ ONE (10:21)
[2019-05-11] MEDS ORDERED: HYDROCORTISONE ACETATE 25 MG SUPP PR PRN (10:21)
--- NOTE | 2019-05-11 10:21 | Post Operative Brief Note ---
Immediate Post Op Note v1 Date of Surgery May 11, 2019 Pre & Post Diagnosis Operation Date: 05/11/19 08:00 <No data on this case meets the specified criteria> Procedure Operation Date: 05/11/19 08:00 <No data on this case meets the specified criteria> Primary low transverse Csection Surgeon Azam Raymond MD Ent Nurse Dr. Johns Estimated Blood Loss 600 Findings Consistent with Post-Op Diagnosis Drains Parrish Catheter Anesthesia Type Spinal Complications none Disposition Accompanied Patient To Recovery: Yes Overlapping Procedure I was present for: the critical portions of procedure. (I WAS PRESENT DURING ENTIRE CASE)
--- NOTE | 2019-05-11 10:35 | Post Operative Brief Note ---
Immediate Post Op Note v1 Date of Surgery May 11, 2019 Pre & Post Diagnosis Operation Date: 05/11/19 08:00 <No data on this case meets the specified criteria> Procedure Operation Date: 05/11/19 08:00 <No data on this case meets the specified criteria> Surgeon Azam Raymond MD Senior Javascript Engineer Dr. Johns Estimated Blood Loss 600 Findings Consistent with Post-Op Diagnosis Drains Parrish Catheter Anesthesia Type Spinal
[2019-05-11] MEDS ORDERED: ARISTA ABSORBABLE HEMOSTAT 3GM TOP ONE (10:49)
[2019-05-11] MEDS ORDERED: OXYTOCIN 10 UNITS/ML VIAL IM ONE (10:49)
[2019-05-11] MEDS ORDERED: ePHEDrine sulfate 50 MG/ML AMP IV PRN (11:09)
[2019-05-11] MEDS ORDERED: MoRPHine SULFATE PF 1 MG/ML 10 ML AMP/VIAL INT SPINAL ONE (11:09)
[2019-05-11] MEDS ORDERED: ACETAMINOPHEN 1000 MG/100 ML IV IV PRN (11:09)
[2019-05-11] MEDS ORDERED: NALOXONE HCL 0.4 MG/1 ML VIAL/CARP IV PRN (11:09)
[2019-05-11] MEDS ORDERED: ONDANSETRON INJ 2 MG/ML 2 ML VIAL IV PRN (11:09)
[2019-05-11] MEDS ORDERED: NALOXONE HCL 0.08 MG in SYRINGE 1.8 ML IV PRN (11:09)
[2019-05-11] MEDS ORDERED: HYDROmorphone INJ 0.5 MG/0.5 ML SYR IV PRN (11:09)
[2019-05-11] MEDS ORDERED: NALOXONE HCL 1 MG in SODIUM CHLORIDE 0.9% 1000ML 1,000 ML IV PRN (11:09)
[2019-05-11] MEDS ORDERED: LACTATED RINGER'S 500 ML IV PRN (11:09)
[2019-05-11] MEDS ORDERED: NALBUPHINE HCL INJ 10 MG/ML AMP IV PRN (11:09)
[2019-05-11] MEDS ORDERED: SODIUM CHLORIDE 0.9% 1000ML 1,000 ML IV SCH (11:15)
[2019-05-11] MEDS ORDERED: NO NARCOTICS OR SEDATIVES SCH (11:15)
[2019-05-11] MEDS ORDERED: DC INTRASPINAL MORPHINE SCH (11:15)
--- NOTE | 2019-05-11 11:22 | Operative Report ---
DATE OF OPERATION: 05/11/2019 PREOPERATIVE DIAGNOSES: The patient is a 29-year-old G2, P1-0-0-1 at 37 weeks with history of operative vaginal delivery and shoulder dystocia with first delivery and now suspected macrosomia, desires primary . POSTOPERATIVE DIAGNOSES: The patient is a 29-year-old G2, P1-0-0-1 at 37 weeks with history of operative vaginal delivery and shoulder dystocia with firsdt / delivery and now suspected macrosomia, desires primary . PROCEDURE: Primary low transverse with Pfannenstiel skin incision. SURGEON: Azam Raymond MD HOT SAW HELPER: Terence Johns MD ANESTHESIA: Spinal, Dr. Angélica Rosa. ESTIMATED BLOOD LOSS: 600. FLUIDS: 1000 mL of Lactated Ringer. URINE: 200 mL of clear urine. FINDINGS: Baby was a viable female , delivered at 9:23 a.m. Weight 4730 grams, which is 10 pounds 6-1/2 ounces and Apgars 6 and 8 at 1 and 5 minutes and polyhydramnios and meconium stained fluid. Maternal findings, normal uterus, fallopian tubes and ovaries. DESCRIPTION OF PROCEDURE: The patient was taken to the operating room where spinal anesthesia was given without difficulty. She was placed in dorsal supine position with a leftward tilt. She was prepared and draped in usual sterile fashion. A Pfannenstiel skin incision was made and carried through to the underlying layer of fascia with the Bovie. Fascia was incised in the midline and incision was extended laterally with the help of Rice scissors. Upper aspect of the fascial incision was then grasped with 2 Jenn clamps, elevated. Underlying rectus muscles were dissected off sharply with Rice scissors. Lower aspect of the fascial incision was then grasped with 2 Jenn clamps, elevated, underlying rectus muscles were dissected off sharply with Rice scissors. Rectus muscles were in the midline. Peritoneum was identified, entered bluntly with fingers. Peritoneal incision was extended superiorly and inferiorly with good visualization of the bladder. Bladder blade was inserted. Vesicouterine peritoneum was identified, grasped with pickups, and entered sharply with Metzenbaum scissors. Bladder flap was created digitally and bladder blade was reinserted. Lower uterine segment was incised in transverse fashion. Membranes were ruptured and abundant amount of fluid was obtained. It was meconium stained and it was light meconium. Baby's head was delivered without difficulty. Shoulders were delivered with minimal traction. Mouth and nose were suctioned and then cord was clamped x2 and cut and then baby was handed to the waiting pediatric team. Dr. Garg. Cord blood was obtained. Placenta was delivered manually as intact and complete. Uterus was exteriorized, cleared of all clots and debris. Fundus was firm and then IV Pitocin infusion was started and also 10 units of Pitocin was injected into the myometrium. The uterus was well contracted and no bleeding. Uterine incision was repaired with 0 Vicryl in a running locked fashion and a second imbricating layer was placed with 0 Vicryl in a running locked fashion and then there was some oozings in the middle of the incision, they were controlled with 0 Vicryl with [id number] stitches x2. Excellent hemostasis was achieved. Cul-de-sac was irrigated and suctioned and uterus was returned to the abdomen. The pelvis was irrigated with warm normal saline and suctioned. Incision was checked multiple times to be hemostatic and then parietal peritoneum was reapproximated with 0 Vicryl in a running fashion and the rectus muscles were reapproximated with 3-0 Vicryl in a running fashion and the rectus muscles and under the fascia was hemostatic. Fascia was closed with 0 Vicryl starting from both corners meeting in the midline. Subcuticular fat tissue was brought together with 3-0 Vicryl in a running fashion. Skin was closed with 4-0 Monocryl in a subcuticular fashion. The patient tolerated the procedure well. Sponge, needle, instrument count was correct x3. Mom and baby tolerated the procedure well. No complications happened. I was and Dr. Johns was present during the whole procedure. The patient was given 3 grams of cefazolin before surgery. She was taken to recovery room in stable condition. I attest to the content of the Intraoperative Record and any orders documented therein. Any exceptions are noted below. DOMI
--- NOTE | 2019-05-11 11:28 | Anesthesiology Progress Note ---
Date of Service May 11, 2019 Anesthesia Post Procedure Vital Signs Vital Signs: Temp Pulse Resp BP Pulse Ox 05/11/19 11:22 77 98 05/11/19 11:21 76 134/91 05/11/19 11:17 74 97 05/11/19 11:12 76 98 05/11/19 11:11 77 125/75 05/11/19 11:10 20 05/11/19 11:07 77 99 05/11/19 11:02 67 99 05/11/19 11:01 65 139/71 05/11/19 11:00 20 05/11/19 10:57 71 99 05/11/19 10:52 63 98 05/11/19 10:51 65 136/87 05/11/19 10:50 20 05/11/19 10:47 67 99 05/11/19 10:42 71 97 05/11/19 10:41 70 137/61 05/11/19 10:40 20 05/11/19 10:37 82 98 05/11/19 10:32 73 134/66 99 05/11/19 10:30 20 05/11/19 10:27 75 99 05/11/19 10:22 76 99 05/11/19 10:20 36.5 C 83 20 136/78 05/11/19 10:17 79 100 05/11/19 08:17 90 98 05/11/19 08:12 89 98 05/11/19 08:07 94 H 98 05/11/19 08:02 93 H 98 05/11/19 07:57 103 H 99 05/11/19 07:52 95 H 99 05/11/19 07:47 100 H 98 05/11/19 07:42 84 96 05/11/19 07:37 87 97 05/11/19 07:32 83 97 05/11/19 07:27 88 96 05/11/19 07:22 82 97 05/11/19 07:17 87 97 05/11/19 07:12 84 98 05/11/19 07:10 84 119/78 05/11/19 07:07 82 99 05/11/19 07:02 82 97 05/11/19 06:57 80 97 05/11/19 06:52 76 97 05/11/19 06:47 75 97 05/11/19 06:42 83 97 05/11/19 06:37 83 97 05/11/19 06:32 85 97 05/11/19 06:27 85 98 05/11/19 06:22 86 98 05/11/19 05:06 18 05/11/19 03:21 85 124/79 05/11/19 03:16 88 133/68 05/11/19 03:09 36.5 C 87 18 137/79 Transfer of Care Handoff Completed per policy Notes Mental Status: alert / awake / arousable and participated in evaluation Nausea / Vomiting: adequately controlled Pain: adequately controlled Airway Patency, RR, SpO2: stable & adequate BP & HR: stable & adequate Hydration State: stable & adequate Neuraxial Anesthesia: was administered and sensory block is resolving Anesthetic Complications: no major complications apparent and Pt Satisfied with anesthetic care
[2019-05-11] MEDS: KETOROLAC 30 MG/ML VIAL IV PRN ×2 (12:46→19:35)
[2019-05-11] MEDS: OXYTOCIN 20 UNITS in LACTATED RINGER'S 1,000 ML IV SCH ×2 (12:47→21:51)
[2019-05-11] MEDS ORDERED: Nursing to Pharmacy Communication ONE (14:09)
[2019-05-11] MEDS ORDERED: METOCLOPRAMIDE HCL INJ 5 MG/ML 2 ML VIAL IV STA (14:13)
[2019-05-11] MEDS: SIMETHICONE 80 MG CHEW PO SCH ×3 (14:27→20:54)
[2019-05-11] MEDS ORDERED: CEFAZOLIN 3000MG/72.5 ML BAG IV SCH (17:00)
[2019-05-11] MEDS: CEFAZOLIN 3,000 MG in DEXTROSE 5% 50 ML IV SCH (17:46)
[2019-05-11] MEDS: DOCUSATE SODIUM 100 MG CAP PO SCH (20:55)
[2019-05-11] MEDS: SERTRALINE HCL 50 MG TABLET PO SCH (20:55)
--- NOTE | 2019-05-11 22:33 | Obstetrical Progress Note ---
Date of Service May 11, 2019 Subjective Postop check Patient is seen and examined Feels well, no complaints Pain is under control with meds No CP/ SOB/ Dizziness/ N&V/ VB/ Leg pain Not OOB yet Tolerating clears Explained about the surgery and findings Breast feeding and supplementing with formula Vital Signs Temp Pulse Pulse Resp BP BP Pulse Ox 05/11/19 21:03 18 99 05/11/19 20:00 18 99 05/11/19 19:22 36.8 C 80 18 130/85 98 05/11/19 19:00 18 99 05/11/19 18:01 16 98 05/11/19 17:04 16 94 05/11/19 16:00 18 97 05/11/19 15:05 18 100 05/11/19 14:48 36.5 C 94 H 16 123/78 97 05/11/19 14:00 20 99 05/11/19 13:00 36.5 C 90 18 125/85 99 05/11/19 12:47 88 100 05/11/19 12:42 64 96 05/11/19 12:41 66 127/69 05/11/19 12:37 73 99 05/11/19 12:32 75 99 05/11/19 12:31 69 145/81 H 05/11/19 12:30 36.7 C 20 05/11/19 12:27 80 98 05/11/19 12:22 83 97 05/11/19 12:21 66 135/79 05/11/19 12:17 65 99 05/11/19 12:12 68 98 05/11/19 12:11 67 128/90 05/11/19 12:07 64 99 05/11/19 12:02 83 98 05/11/19 12:01 75 121/91 05/11/19 11:57 93 H 98 05/11/19 11:52 88 97 05/11/19 11:51 88 111/74 05/11/19 11:50 20 05/11/19 11:47 92 H 97 05/11/19 11:42 79 98 05/11/19 11:41 82 123/68 05/11/19 11:38 89 94 05/11/19 11:37 79 99 05/11/19 11:32 75 98 05/11/19 11:31 71 135/75 05/11/19 11:27 78 97 05/11/19 11:22 77 98 05/11/19 11:21 76 20 134/91 05/11/19 11:20 36.6 C 20 05/11/19 11:17 74 97 05/11/19 11:12 76 98 05/11/19 11:11 77 125/75 05/11/19 11:10 20 05/11/19 11:07 77 99 05/11/19 11:02 67 99 05/11/19 11:01 65 139/71 05/11/19 11:00 20 05/11/19 10:57 71 99 05/11/19 10:52 63 98 05/11/19 10:51 65 136/87 05/11/19 10:50 20 05/11/19 10:47 67 99 05/11/19 10:42 71 97 05/11/19 10:41 70 137/61 05/11/19 10:40 20 05/11/19 10:37 82 98 PE: General: Alert, orientedx3, NAD CVS: S1S2 RRR Lungs: CTAB Abd: soft, NT, ND, BS+, Dressing C/D/I No VB Ext: NT, no edema, SCD's on AP: 29 yo female s/p Primary CS , pod#0 VSS Afebrile doing well Continue to routine postop care Encourage PO intake, may ambulate D/C camejo in am Results & Data Vital Signs (Past 12 Hours) Vital Signs Temp Pulse Pulse Resp BP BP Pulse Ox 05/11/19 21:03 18 99 05/11/19 20:00 18 99 05/11/19 19:22 36.8 C 80 18 130/85 98 05/11/19 19:00 18 99 05/11/19 18:01 16 98 05/11/19 17:04 16 94 05/11/19 16:00 18 97 05/11/19 15:05 18 100 05/11/19 14:48 36.5 C 94 H 16 123/78 97 05/11/19 14:00 20 99 05/11/19 13:00 36.5 C 90 18 125/85 99 05/11/19 12:47 88 100 05/11/19 12:42 64 96 05/11/19 12:41 66 127/69 05/11/19 12:37 73 99 05/11/19 12:32 75 99 05/11/19 12:31 69 145/81 H 05/11/19 12:30 36.7 C 20 05/11/19 12:27 80 98 05/11/19 12:22 83 97 05/11/19 12:21 66 135/79 05/11/19 12:17 65 99 05/11/19 12:12 68 98 05/11/19 12:11 67 128/90 05/11/19 12:07 64 99 05/11/19 12:02 83 98 05/11/19 12:01 75 121/91 05/11/19 11:57 93 H 98 05/11/19 11:52 88 97 05/11/19 11:51 88 111/74 05/11/19 11:50 20 05/11/19 11:47 92 H 97 05/11/19 11:42 79 98 05/11/19 11:41 82 123/68 05/11/19 11:38 89 94 05/11/19 11:37 79 99 05/11/19 11:32 75 98 05/11/19 11:31 71 135/75 05/11/19 11:27 78 97 05/11/19 11:22 77 98 05/11/19 11:21 76 20 134/91 05/11/19 11:20 36.6 C 20 05/11/19 11:17 74 97 05/11/19 11:12 76 98 05/11/19 11:11 77 125/75 05/11/19 11:10 20 05/11/19 11:07 77 99 05/11/19 11:02 67 99 05/11/19 11:01 65 139/71 05/11/19 11:00 20 05/11/19 10:57 71 99 05/11/19 10:52 63 98 05/11/19 10:51 65 136/87 05/11/19 10:50 20 05/11/19 10:47 67 99 05/11/19 10:42 71 97 05/11/19 10:41 70 137/61 05/11/19 10:40 20 05/11/19 10:37 82 98 05/11/19 10:32 73 134/66 99
[2019-05-12] MEDS: KETOROLAC 30 MG/ML VIAL IV PRN (04:11)
[2019-05-12] MEDS ORDERED: PROMETHAZINE HCL 25 MG in SODIUM CHLORIDE 0.9% 50 ML IV PRN (05:09)
[2019-05-12] MEDS ORDERED: OXYCODONE/ACETAMINOPHEN 5mg/325mg TAB PO PRN (05:09)
[2019-05-12] MEDS ORDERED: ONDANSETRON INJ 2 MG/ML 2 ML VIAL IV PRN (05:09)
[2019-05-12] MEDS ORDERED: KETOROLAC 30 MG/ML VIAL IV PRN (05:09)
[2019-05-12] MEDS ORDERED: MEPERIDINE HCL 50 MG/ML CARP IV PRN (05:09)
[2019-05-12] MEDS ORDERED: CITRIC ACID/SODIUM CITRATE 15 ML UDC PO SCH (06:00)
--- NOTE | 2019-05-12 06:38 | Anesthesiology Progress Note ---
Date of Service May 12, 2019 Anesthesia Post Procedure Vital Signs Vital Signs: Temp Pulse Pulse Resp BP BP Pulse Ox 05/12/19 05:00 18 97 05/12/19 04:01 37.3 C 98 H 18 127/80 96 05/12/19 04:00 18 97 05/12/19 03:00 18 96 05/12/19 02:00 16 95 05/12/19 01:00 18 97 05/12/19 00:00 18 98 05/11/19 23:08 36.9 C 92 H 18 130/85 98 05/11/19 23:00 18 96 05/11/19 22:00 18 99 05/11/19 21:03 18 99 05/11/19 20:00 18 99 05/11/19 19:22 36.8 C 80 18 130/85 98 05/11/19 19:00 18 99 05/11/19 18:01 16 98 05/11/19 17:04 16 94 05/11/19 16:00 18 97 05/11/19 15:05 18 100 05/11/19 14:48 36.5 C 94 H 16 123/78 97 05/11/19 14:00 20 99 05/11/19 13:00 36.5 C 90 18 125/85 99 05/11/19 12:47 88 100 05/11/19 12:42 64 96 05/11/19 12:41 66 127/69 05/11/19 12:37 73 99 05/11/19 12:32 75 99 05/11/19 12:31 69 145/81 H 05/11/19 12:30 36.7 C 20 05/11/19 12:27 80 98 05/11/19 12:22 83 97 05/11/19 12:21 66 135/79 05/11/19 12:17 65 99 05/11/19 12:12 68 98 05/11/19 12:11 67 128/90 05/11/19 12:07 64 99 05/11/19 12:02 83 98 05/11/19 12:01 75 121/91 05/11/19 11:57 93 H 98 05/11/19 11:52 88 97 05/11/19 11:51 88 111/74 05/11/19 11:50 20 05/11/19 11:47 92 H 97 05/11/19 11:42 79 98 05/11/19 11:41 82 123/68 05/11/19 11:38 89 94 05/11/19 11:37 79 99 05/11/19 11:32 75 98 05/11/19 11:31 71 135/75 05/11/19 11:27 78 97 05/11/19 11:22 77 98 05/11/19 11:21 76 20 134/91 05/11/19 11:20 36.6 C 20 05/11/19 11:17 74 97 05/11/19 11:12 76 98 05/11/19 11:11 77 125/75 05/11/19 11:10 20 05/11/19 11:07 77 99 05/11/19 11:02 67 99 05/11/19 11:01 65 139/71 05/11/19 11:00 20 05/11/19 10:57 71 99 05/11/19 10:52 63 98 05/11/19 10:51 65 136/87 05/11/19 10:50 20 05/11/19 10:47 67 99 05/11/19 10:42 71 97 05/11/19 10:41 70 137/61 05/11/19 10:40 20 05/11/19 10:37 82 98 05/11/19 10:32 73 134/66 99 05/11/19 10:30 20 05/11/19 10:27 75 99 05/11/19 10:22 76 99 05/11/19 10:20 36.5 C 83 20 136/78 05/11/19 10:17 79 100 05/11/19 08:17 90 98 05/11/19 08:12 89 98 05/11/19 08:07 94 H 98 05/11/19 08:02 93 H 98 05/11/19 07:57 103 H 99 05/11/19 07:52 95 H 99 05/11/19 07:47 100 H 98 05/11/19 07:42 84 96 05/11/19 07:37 87 97 05/11/19 07:32 83 97 05/11/19 07:27 88 96 05/11/19 07:22 82 97 05/11/19 07:17 87 97 05/11/19 07:12 84 98 05/11/19 07:10 84 119/78 05/11/19 07:07 82 99 05/11/19 07:02 82 97 05/11/19 06:57 80 97 05/11/19 06:52 76 97 05/11/19 06:47 75 97 05/11/19 06:42 83 97 Pain Intensity Bilateral Lower Abdomen: Pain Intensity: 4 Transfer of Care Handoff Completed per policy Notes Mental Status: alert / awake / arousable and participated in evaluation Nausea / Vomiting: adequately controlled Pain: adequately controlled Airway Patency, RR, SpO2: stable & adequate BP & HR: stable & adequate Hydration State: stable & adequate Neuraxial Anesthesia: was administered and sensory block resolved Anesthetic Complications: no major complications apparent and Pt Satisfied with anesthetic care Notes: Patient denies headache this morning. Has been up walking without weakness or residual numbness. Patient encouraged to contact anesthesia for any concerns or new headache.
[2019-05-12] MEDS: IBUPROFEN 600 MG TAB PO PRN ×5 (06:53→23:06)
[2019-05-12 07:08] LABS: Basophils # (auto) 0.03 K/uL (0-0.2); Basophils % (auto) 0.2 %; Eosinophils # (auto) 0.11 K/uL (0-0.5); Eosinophils % (auto) 0.7 %; Hematocrit (blood only) 30.1 % (37-47); Immature Granulocytes # (auto) 0.07 K/uL (0.00-0.02); Immature Granulocytes % (auto) 0.5 %; Lymphocytes # (auto) 1.76 K/uL (1.2-3.4); Lymphocytes % (auto) 11.3 %; Mean Corpuscular Hgb Conc 33.2 g/dL (32-36); Mean Corpuscular Volume 84.3 fL (80-100); Monocytes # (auto) 1.68 K/uL (0.11-0.59); Monocytes % (auto) 10.8 %; Neutrophils # (auto) 11.89 K/uL (1.4-6.5); Neutrophils % (auto) 76.5 %; Platelet Count 203 K/uL (130-400); RDW Coefficient of Variation 13.7 % (11.5-14.5); RDW Standard Deviation 41.3 fL (36.4-46.3); Red Blood Count 3.57 M/uL (4.2-5.4); White Blood Count 15.54 K/uL (4.8-10.8)
--- NOTE | 2019-05-12 07:47 | Obstetrical Progress Note ---
Date of Service May 12, 2019 Assessment & Plan (1) delivery delivered: c/section day #1 pt doing well continue day #1 care Subjective Ambulation: ambulating normally Voiding: no voiding problems Passing Gas:: Yes Diet Tolerance:: clear liquids Lochia:: Small Feeding Type:: breast feeding Review of Systems All systems reviewed & are unremarkable except as noted in HPI & below Physical Exam Constitutional WD/WN, vitals as above well developed and well nourished Eyes PERRL, conjunctivae normal, anicteric sclerae ENMT external ear and nose normal, oropharynx normal Neck trachea midline, no thyromegaly Respiratory normal respiratory effort, lungs clear to auscultation Cardiovascular RRR, no murmur, no edema Chest (Breasts) normal inspection/palpation of breasts Gastrointestinal (Abdomen) normal bowel sounds, soft, nontender, no hepatosplenomegaly Musculoskeletal no cyanosis or clubbing, extremities motor strength 5/5 Skin no rashes, warm and dry + incision (Clean,dry and intact) Neurologic patellar DTR's 2+ bilat, sensation intact Psychiatric A+Ox3, euthymic affect Genitourinary normal external appearance Lymphatic no cervical or axillary lymphadenopathy Results & Data Vital Signs (Past 12 Hours) Vital Signs Temp Pulse Resp BP Pulse Ox 05/12/19 05:00 18 97 05/12/19 04:01 37.3 C 98 H 18 127/80 96 05/12/19 04:00 18 97 05/12/19 03:00 18 96 05/12/19 02:00 16 95 05/12/19 01:00 18 97 05/12/19 00:00 18 98 05/11/19 23:08 36.9 C 92 H 18 130/85 98 05/11/19 23:00 18 96 05/11/19 22:00 18 99 05/11/19 21:03 18 99 05/11/19 20:00 18 99
[2019-05-12] MEDS: DOCUSATE SODIUM 100 MG CAP PO SCH ×2 (09:12→20:45)
[2019-05-12] MEDS: PRENATAL VITAMIN 1 TAB PO SCH (09:12)
[2019-05-12] MEDS: FERROUS SULFATE 325 MG TAB PO SCH (09:12)
[2019-05-12] MEDS: CEFAZOLIN 3,000 MG in DEXTROSE 5% 50 ML IV SCH (09:13)
[2019-05-12] MEDS: SIMETHICONE 80 MG CHEW PO SCH ×3 (09:21→20:45)
[2019-05-12 13:20] LABS: Appearance Urine Clear (Clear); Bilirubin Urine Negative (Negative); Blood Urine 3+ (Negative); Color Urine Yellow; Glucose Urine UA Negative (Negative); Ketones Urine Negative (Negative); Leukocyte Esterase Urine Trace (Negative); Nitrite Urine Negative (Negative); Protein Urine Negative (Negative); Specific Gravity Urine 1.011 (1.000-1.030); Urobilinogen Urine Negative (Negative)
[2019-05-12 13:39] LABS: Bacteria Urine Negative (Negative); Epithelial Cell Urine >30 /lpf (0-5); Hyaline Casts Urine 0-5 /lpf (0-5); RBC Urine 0-4 /hpf (0-4); WBC Urine 0-5 /hpf (0-5)
[2019-05-12] MEDS: ACETAMINOPHEN 500 MG TAB PO PRN ×2 (14:41→20:44)
[2019-05-12] MEDS: HYDROCORTISONE 2.5% CR 30 GM TUBE EXT SCH ×2 (14:41→20:58)
[2019-05-12] MEDS ORDERED: BISACODYL 5 MG TABEC PO SCH (20:00)
[2019-05-12] MEDS: SERTRALINE HCL 50 MG TABLET PO SCH (20:52)
[2019-05-13] MEDS: IBUPROFEN 600 MG TAB PO PRN ×5 (03:24→22:16)
[2019-05-13] MEDS: HYDROCORTISONE 2.5% CR 30 GM TUBE EXT SCH ×3 (04:29→12:22)
[2019-05-13 06:49] LABS: Hematocrit (blood only) 26.1 % (37-47); Hemoglobin 8.4 g/dL (12.0-16.0)
[2019-05-13] MEDS: FERROUS SULFATE 325 MG TAB PO SCH (08:15)
[2019-05-13] MEDS: DOCUSATE SODIUM 100 MG CAP PO SCH ×2 (08:15→20:56)
[2019-05-13] MEDS: PRENATAL VITAMIN 1 TAB PO SCH (08:15)
[2019-05-13] MEDS: SIMETHICONE 80 MG CHEW PO SCH ×4 (08:16→20:57)
--- NOTE | 2019-05-13 09:26 | Obstetrical Progress Note ---
Date of Service May 13, 2019 Subjective Patient is seen and examined. She feels well, no complaints. Pain is under control with oral meds. Ambulating without dizziness Voiding without difficulty Tolerating regular diet with out N&V Flatus + BM Negative Bleeding is minimal No fever/ chills/ CP/ SOB/ N&V/ Leg pain Breast and bottle feeding without problems PE: General: Alert, orientedx3, NAD CVS: S1S2 RRR Lungs; CTAB Abd: soft, NT, ND, BS+, fundus firm, below Umbilicus Incision: Clean, dry, intact Perineum intact, Lochia rubra minimal Ext; NT, no edema AP: 29 yo s/p C Section, pod# 2 VSS Afebrile doing well Continue routine postop care Encourage ambulation, PO intake All questions were answered D/C home tomorrow Results & Data Vital Signs (Past 12 Hours) Vital Signs Temp Pulse Resp BP BP Pulse Ox 05/13/19 07:38 36.8 C 86 18 122/80 97 05/12/19 23:15 36.5 C 88 18 113/74
[2019-05-13] MEDS: ACETAMINOPHEN 500 MG TAB PO PRN ×2 (09:54→21:02)
[2019-05-13] MEDS ORDERED: BISACODYL 10 MG SUPP PR PRN (10:21)
[2019-05-13 12:40] LABS: Basophils # (auto) 0.04 K/uL (0-0.2); Basophils % (auto) 0.3 %; Eosinophils # (auto) 0.24 K/uL (0-0.5); Eosinophils % (auto) 1.7 %; Hematocrit (blood only) 26.5 % (37-47); Hemoglobin 8.7 g/dL (12.0-16.0); Immature Granulocytes # (auto) 0.06 K/uL (0.00-0.02); Immature Granulocytes % (auto) 0.4 %; Lymphocytes # (auto) 1.74 K/uL (1.2-3.4); Lymphocytes % (auto) 12.6 %; Mean Corpuscular Hgb Conc 32.8 g/dL (32-36); Mean Corpuscular Volume 85.2 fL (80-100); Mean Platelet Volume 9.2 fL (7.4-10.4); Monocytes # (auto) 1.08 K/uL (0.11-0.59); Monocytes % (auto) 7.8 %; Neutrophils # (auto) 10.65 K/uL (1.4-6.5); Neutrophils % (auto) 77.2 %; Platelet Count 230 K/uL (130-400); RDW Standard Deviation 42.6 fL (36.4-46.3); Red Blood Count 3.11 M/uL (4.2-5.4); White Blood Count 13.81 K/uL (4.8-10.8)
[2019-05-13] MEDS: SERTRALINE HCL 50 MG TABLET PO SCH (20:59)
[2019-05-14 00:30] LABS: Appearance Urine Clear (Clear); Bacteria Urine Automated Negative (Negative); Bilirubin Urine Negative (Negative); Blood Urine Trace (Negative); Cast Urine Automated 0 /lpf (0-5); Color Urine Yellow; Epithelial Cell Urine Auto 20-30 /lpf (0-5); Glucose Urine UA Negative (Negative); Ketones Urine Negative (Negative); Leukocyte Esterase Urine Trace (Negative); Nitrite Urine Negative (Negative); Protein Urine Negative (Negative); RBC Urine Automated 0-4 /hpf (0-4); Specific Gravity Urine 1.018 (1.000-1.030); Urobilinogen Urine Negative (Negative); pH Urine 7.5 (4.5-7.5)
[2019-05-14] MEDS: HYDROCORTISONE 2.5% CR 30 GM TUBE EXT SCH ×4 (01:05→11:37)
[2019-05-14] MEDS: IBUPROFEN 600 MG TAB PO PRN ×2 (06:18→11:37)
[2019-05-14] MEDS: SIMETHICONE 80 MG CHEW PO SCH ×2 (08:00→11:36)
[2019-05-14] MEDS: PRENATAL VITAMIN 1 TAB PO SCH (08:00)
[2019-05-14] MEDS: DOCUSATE SODIUM 100 MG CAP PO SCH (08:00)
[2019-05-14] MEDS: FERROUS SULFATE 325 MG TAB PO SCH (08:00)
--- NOTE | 2019-05-14 10:46 | Surgery Progress Note ---
Date of Service May 14, 2019 Subjective doing well passing gas tolerating diet well ambulating well Physical Exam Constitutional: WD/WN, vitals as above comfortable incision clean, dry and intact abdomen soft non-tender no edema neg Julieta's for discharge Results & Data Vital Signs (Past 12 Hours) Vital Signs Temp Pulse Resp BP Pulse Ox 05/14/19 08:00 36.6 C 79 18 119/79 97 05/13/19 23:25 36.8 C 81 18 126/85 Laboratory Results Laboratory Results - last 72 hr 05/11/19 05/12/19 05/12/19 14:42 06:51 12:55 WBC 15.54 H RBC 3.57 L Hgb 10.0 L Hct 30.1 L MCV 84.3 MCH 28.0 MCHC 33.2 RDW Std Deviation 41.3 RDW Coeff of Keith 13.7 Plt Count 203 MPV 10.0 Immature Gran % (Auto) 0.5 Neut % (Auto) 76.5 Lymph % (Auto) 11.3 [place] % (Auto) 10.8 Eos % (Auto) 0.7 Baso % (Auto) 0.2 Immature Gran # (Auto) 0.07 H Neut # (Auto) 11.89 H Lymph # (Auto) 1.76 [place] # (Auto) 1.68 H Eos # (Auto) 0.11 Baso # (Auto) 0.03 POC Glucose 86 Urine Color Yellow Urine Appearance Clear Urine pH 7.0 Ur Specific [place] 1.011 Urine Protein Negative Urine Glucose (UA) Negative Urine Ketones Negative Urine Blood 3+ H Urine Nitrite Negative Urine Bilirubin Negative Urine Urobilinogen Negative Ur Leukocyte Esterase Trace H Urine WBC (Auto) Urine RBC (Auto) U Hyaline Cast (Auto) U Epithel Cells (Auto) Urine Bacteria (Auto) Urine RBC 0-4 Urine WBC 0-5 Ur Epithelial Cells >30 H Urine Bacteria Negative Hyaline Casts 0-5 05/13/19 05/13/19 05/14/19 06:07 12:30 00:16 WBC 13.81 H RBC 3.11 L Hgb 8.4 L 8.7 L Hct 26.1 L 26.5 L MCV 85.2 MCH 28.0 MCHC 32.8 RDW Std Deviation 42.6 RDW Coeff of Keith 14.0 Plt Count 230 MPV 9.2 Immature Gran % (Auto) 0.4 Neut % (Auto) 77.2 Lymph % (Auto) 12.6 [place] % (Auto) 7.8 Eos % (Auto) 1.7 Baso % (Auto) 0.3 Immature Gran # (Auto) 0.06 H Neut # (Auto) 10.65 H Lymph # (Auto) 1.74 [place] # (Auto) 1.08 H Eos # (Auto) 0.24 Baso # (Auto) 0.04 POC Glucose Urine Color Yellow Urine Appearance Clear Urine pH 7.5 Ur Specific [place] 1.018 Urine Protein Negative Urine Glucose (UA) Negative Urine Ketones Negative Urine Blood Trace H Urine Nitrite Negative Urine Bilirubin Negative Urine Urobilinogen Negative Ur Leukocyte Esterase Trace H Urine WBC (Auto) 1-5 Urine RBC (Auto) 0-4 U Hyaline Cast (Auto) 0 U Epithel Cells (Auto) 20-30 H Urine Bacteria (Auto) Negative Urine RBC Urine WBC Ur Epithelial Cells Urine Bacteria Hyaline Casts
[2019-05-14] MEDS: ACETAMINOPHEN 500 MG TAB PO PRN (11:37)
== END 2019-05-14 13:35 | disposition home or self-care (01) | DRG 788 ==
LOC: OPB 02:57 → 4S1 03:02 → 4S2 13:20